=== PATIENT | female | born 1970 | race Caucasian/White ===

== ENCOUNTER 2024-03-06 17:17 | Inpatient (IN) | payer BC ==
[~2024-03-06] VITALS: Ht 162.6 cm; Wt 54.8 kg
[2024-03-06] VITALS (63 sets, daily range): BP systolic 95–153; BP diastolic 56–103; TEMP 98.9; O2SAT 79–100
[2024-03-06] MEDS: methylPREDNISolone 125MG 2ML VIAL IV ONE (18:20)
[2024-03-06] MEDS: IPRATROPIUM 0.5MG/ALBUTEROL 2.5MG INH SOL UD 3ML (DUONEB) NEB ONE (18:20)
[2024-03-06] MEDS ORDERED: ISOVUE-370 76% 100ML VIAL As Ordered ONE (18:22)
[2024-03-06 18:34] LABS: CK-MB VALUE MASS 6.8 NG/ML (<3.6); ETHYL ALCOHOL (ETHANOL) < 0.003 % (0.000-0.010)
[2024-03-06 18:35] LABS: SALICYLATE LEVEL < 3.0 MG/DL (<30)
[2024-03-06 18:36] LABS: ALBUMIN 3.3 G/DL (3.2-5.2); ALKALINE PHOSPHATASE 309 U/L (35-104); ALT/SGPT 110 U/L (7.0-40); AST/SGOT 185 U/L (<34); BILIRUBIN,DIRECT 0.7 MG/DL (<0.4); BILIRUBIN,TOTAL 1.9 MG/DL (0.3-1.2); BLOOD UREA NITROGEN 25 MG/DL (9-23); CALCIUM LEVEL 9.2 MG/DL (8.5-10.1); CARBON DIOXIDE LEVEL 16 MMOL/L (20-31); CHLORIDE LEVEL 103 MMOL/L (98-107); CPK CREATINE PHOSPHOKINASE 373 U/L (34-145); CREATININE FOR GFR 1.03 MG/DL (0.55-1.30); GLOMERULAR FILTRATION RATE 59.4 (>51); GLUCOSE, FASTING 163 MG/DL (60-100); MB/CK RELATIVE INDEX 1.82 (< OR =4); SODIUM LEVEL 134 MMOL/L (136-145); TOTAL PROTEIN 7.3 G/DL (5.7-8.2)
[2024-03-06 18:36] LABS: BASO % 0.3 % (0.0-1.0); EOS % 0.2 % (0.0-3.0); HEMATOCRIT 34.2 % (36.0-47.0); LYMPH % 34.3 % (24.0-44.0); MEAN CORPUSCULAR HEMOGLOBIN 29.7 pg (27.0-33.0); MEAN CORPUSCULAR HGB CONC 29.2 g/dl (32.0-36.5); MEAN CORPUSCULAR VOLUME 101.5 fl (80.0-96.0); MONO # 0.6 10^3/uL (0.0-0.8); MONO % 6.9 % (2.0-8.0); PLATELET COUNT, AUTOMATED 281 10^3/uL (150-450); RED BLOOD COUNT 3.37 10^6/uL (4.00-5.40); WHITE BLOOD COUNT 8.7 10^3/uL (4.0-10.0)
[2024-03-06 18:38] LABS: THYROID STIMULATING HORMONE 9.608 uIU/ML (0.55-4.78)
[2024-03-06 18:58] LABS: OSMOLALITY SERUM 292 MOSM/KG (275-295)
[2024-03-06] MEDS ORDERED: LIDOCAINE 1% MDV 20ML VIAL As Ordered ONE (19:17)
[2024-03-06] MEDS ORDERED: MIDAZOLAM INJ 2MG/2ML VIAL As Ordered ONE (19:17)
[2024-03-06] MEDS ORDERED: D5W/0.9% SODIUM CHLORIDE 1,000 ML IV SCH (19:25)
[2024-03-06] MEDS ORDERED: LEVALBUTEROL 1.25MG 0.5ML CONCENTRATE NEB NEB PRN (19:35)
[2024-03-06] MEDS ORDERED: PERCOCET 5MG/325MG TAB PO PRN ×2 (19:35)
[2024-03-06] MEDS ORDERED: BISACODYL 10MG SUPP PR PRN (19:35)
[2024-03-06] MEDS: LEVALBUTEROL 1.25MG 0.5ML CONCENTRATE NEB NEB SCH (20:07)
[2024-03-06 20:11] LABS: ABG BASE EXCESS -5.9 (-2.0-2.0); ABG HCO3 17.1 MMOL/L (22.0-26.0); ABG O2 SATURATION 98.2 % (95.0-99.0); ABG PARTIAL PRESSURE CO2 25.9 mmHg (35.0-45.0); ABG STANDARD HCO3 19.6 MMOL/L. (22.0-26.0); ABG TOTAL CO2 17.9 MMOL/L (22.0-29.0); ABG pH (ARTERIAL) 7.437 UNITS (7.350-7.450)
[2024-03-06] MEDS ORDERED: ceFAZolin SOD 2 GM in IV 1 EA IV ONE (20:30)
[2024-03-06] MEDS: ceFAZolin SOD 2 GM in IV 1 EA IV ONE (20:32)
[2024-03-06] MEDS: D5W/0.9% SODIUM CHLORIDE 1,000 ML IV SCH (20:32)
[2024-03-06] MEDS: MIDAZOLAM INJ 2MG/2ML VIAL IV ONE ×4 (20:38→20:50)
[2024-03-06] MEDS: LIDOCAINE 1% MDV 20ML VIAL SC ONE (20:44)
[2024-03-06] MEDS: DOCUSATE SODIUM 100MG CAPSULE PO SCH (21:00)
[2024-03-06 21:17] LABS: LDH LACTATE DEHYDROGENASE 553 U/L (120-246)
[2024-03-06 21:31] LABS: PH BODY FLUID 7.195 UNITS (NOT ESTABLISHED); SOURCE, BODY FLUID pH PLEURAL
[2024-03-06] MEDS: KETOROLAC 30 MG/ML 1ML VIAL IV SCH (21:38)
[2024-03-06 21:49] LABS: APPEARANCE, BODY FLUID TURBID (CLEAR); PLEURAL FL COLOR RED (COLORLESS); SOURCE, BODY FLUID PLEURAL
[2024-03-06 21:56] LABS: CK-MB VALUE MASS 6.4 NG/ML (<3.6)
[2024-03-06 22:02] LABS: MB/CK RELATIVE INDEX 1.83 (< OR =4)
[2024-03-06 22:21] LABS: SOURCE, BODY FLUID ALBUMIN PLEURAL
[2024-03-06 22:26] LABS: SOURCE, BODY FLUID GLUCOSE PLEURAL
[2024-03-06 22:28] LABS: AMYLASE, BODY FLUID 79 U/L (NOT ESTABLISHED); CHOLESTEROL, BODY FLUID 240 MG/DL (NOT ESTABLISHED); SOURCE, BODY FLUID AMYLASE PLEURAL; SOURCE, BODY FLUID CHOL PLEURAL
[2024-03-06] MEDS: LR 1,000 ML IV SCH (22:30)
[2024-03-06 22:37] LABS: LDH, BODY FLUID > 750 U/L (NOT ESTABLISHED); SOURCE, BODY FLUID LDH PLEURAL
[2024-03-06 22:40] LABS: SOURCE, BODY FLUID TRIG PLEURAL; TRIGLYCERIDE, BODY FLUID 92 MG/DL (NOT ESTABLISHED)
[2024-03-06 22:44] LABS: MAGNESIUM LEVEL 2.4 MG/DL (1.8-2.4)
[2024-03-06] MEDS: METOPROLOL 5 MG/5 ML VIAL IV SCH (22:49)
[2024-03-06 22:53] LABS: PROCALCITONIN 0.47 ng/ml
[2024-03-06] MEDS: SODIUM BICARBONATE 150 MEQ in D5W 1,000 ML IV SCH (23:00)
[2024-03-06 23:21] LABS: ABG BASE EXCESS -2.1 (-2.0-2.0); ABG HCO3 21.3 MMOL/L (22.0-26.0); ABG O2 SATURATION 98.5 % (95.0-99.0); ABG PARTIAL PRESSURE CO2 31.3 mmHg (35.0-45.0); ABG PARTIAL PRESSURE O2 119.9 mmHg (75.0-100.0); ABG STANDARD HCO3 22.8 MMOL/L. (22.0-26.0); ABG TOTAL CO2 22.3 MMOL/L (22.0-29.0); ABG pH (ARTERIAL) 7.451 UNITS (7.350-7.450)
[2024-03-07] VITALS (21 sets, daily range): BP systolic 94–137; BP diastolic 60–78; TEMP 98.1–99.5; O2SAT 92–98
[2024-03-07 00:02] LABS: SOURCE, BODY FLUID TOT PROTEIN PLEURAL; TOTAL PROTEIN, BODY FLUID 6.3 G/DL (NOT ESTABLISHED)
[2024-03-07 00:07] LABS: ALBUMIN 2.7 G/DL (3.2-5.2); ALKALINE PHOSPHATASE 252 U/L (35-104); ALT/SGPT 104 U/L (7.0-40); AST/SGOT 226 U/L (<34); BILIRUBIN,TOTAL 1.2 MG/DL (0.3-1.2); BLOOD UREA NITROGEN 23 MG/DL (9-23); CALCIUM LEVEL 8.4 MG/DL (8.5-10.1); CARBON DIOXIDE LEVEL 22 MMOL/L (20-31); CHLORIDE LEVEL 109 MMOL/L (98-107); CREATININE FOR GFR 0.85 MG/DL (0.55-1.30); GLOMERULAR FILTRATION RATE > 60.0 (>51); GLUCOSE, FASTING 157 MG/DL (60-100); POTASSIUM SERUM 4.5 MMOL/L (3.5-5.1); SODIUM LEVEL 141 MMOL/L (136-145)
[2024-03-07 05:13] LABS: ABG BASE EXCESS 0.8 (-2.0-2.0); ABG HCO3 23.9 MMOL/L (22.0-26.0); ABG O2 SATURATION 95.4 % (95.0-99.0); ABG PARTIAL PRESSURE CO2 32.3 mmHg (35.0-45.0); ABG PARTIAL PRESSURE O2 77.5 mmHg (75.0-100.0); ABG STANDARD HCO3 25.2 MMOL/L. (22.0-26.0); ABG TOTAL CO2 24.9 MMOL/L (22.0-29.0); ABG pH (ARTERIAL) 7.487 UNITS (7.350-7.450)
[2024-03-07 05:22] LABS: EOS # 0.1 10^3/uL (0.0-0.5); EOS % 0.9 % (0.0-3.0); HEMATOCRIT 27.2 % (36.0-47.0); HEMOGLOBIN 8.3 g/dl (12.0-15.5); LYMPH # 0.8 10^3/uL (1.5-5.0); MEAN CORPUSCULAR HEMOGLOBIN 29.2 pg (27.0-33.0); MEAN CORPUSCULAR HGB CONC 30.5 g/dl (32.0-36.5); MEAN CORPUSCULAR VOLUME 95.8 fl (80.0-96.0); MONO # 0.3 10^3/uL (0.0-0.8); MONO % 5.9 % (2.0-8.0); NEUTROPHILS # 4.5 10^3/uL (1.5-8.5); NEUTROPHILS % 77.8 % (36.0-66.0); PLATELET COUNT, AUTOMATED 223 10^3/uL (150-450); RED BLOOD COUNT 2.84 10^6/uL (4.00-5.40); WHITE BLOOD COUNT 5.7 10^3/uL (4.0-10.0)
[2024-03-07 05:47] LABS: BLOOD UREA NITROGEN 22 MG/DL (9-23); CALCIUM LEVEL 8.2 MG/DL (8.5-10.1); CARBON DIOXIDE LEVEL 26 MMOL/L (20-31); CHLORIDE LEVEL 108 MMOL/L (98-107); CREATININE FOR GFR 0.81 MG/DL (0.55-1.30); GLOMERULAR FILTRATION RATE > 60.0 (>51); GLUCOSE, FASTING 169 MG/DL (60-100); POTASSIUM SERUM 4.6 MMOL/L (3.5-5.1); SODIUM LEVEL 142 MMOL/L (136-145)
[2024-03-07 07:22] LABS: ALBUMIN 2.6 G/DL (3.2-5.2); ALKALINE PHOSPHATASE 248 U/L (35-104); ALT/SGPT 111 U/L (7.0-40); AST/SGOT 384 U/L (<34); TOTAL PROTEIN 5.9 G/DL (5.7-8.2)
[2024-03-07] MEDS: HEPARIN SOD (PORCINE) 5000UNITS/ML 1ML VIAL/SYRINGE SC SCH (08:38)
[2024-03-07] MEDS: MOM 30ML SUSPENSION UDC PO SCH (08:39)
[2024-03-07] MEDS: PANTOPRAZOLE 40MG TAB (PROTONIX) PO SCH (08:39)
[2024-03-07] MEDS ORDERED: VITA100018 PO (09:26)
[2024-03-07] MEDS ORDERED: D-10TAB2 PO (09:26)
[2024-03-07] MEDS ORDERED: C 50TAB PO (09:26)
[2024-03-07] MEDS ORDERED: HOME MED LIST COMPLETE! XX SCH (09:30)
[2024-03-07 11:53] LABS: IRON (FE) 40 UG/DL (50-170); PERCENT SATURATION 16.1 % (13.2-45.0); TOTAL IRON BINDING CAPACITY 248 UG/DL (250-425)
[2024-03-07 11:54] LABS: FERRITIN 311.6 NG/ML (7.3-270.7)
[2024-03-07 11:55] LABS: FOLATE 15.05 NG/ML (>5.4)
[2024-03-07 11:56] LABS: VITAMIN B12 LEVEL > 2000 PG/ML (211-911)
[2024-03-07 18:47] LABS: ALBUMIN 2.6 G/DL (3.2-5.2); ALKALINE PHOSPHATASE 287 U/L (35-104); ALT/SGPT 112 U/L (7.0-40); AST/SGOT 492 U/L (<34); BILIRUBIN,TOTAL 0.8 MG/DL (0.3-1.2); BLOOD UREA NITROGEN 37 MG/DL (9-23); CARBON DIOXIDE LEVEL 28 MMOL/L (20-31); CHLORIDE LEVEL 99 MMOL/L (98-107); CREATININE FOR GFR 0.92 MG/DL (0.55-1.30); GLOMERULAR FILTRATION RATE > 60.0 (>51); GLUCOSE, FASTING 266 MG/DL (60-100); POTASSIUM SERUM 4.3 MMOL/L (3.5-5.1); SODIUM LEVEL 138 MMOL/L (136-145); TOTAL PROTEIN 5.9 G/DL (5.7-8.2)
[2024-03-07] MEDS: ONDANSETRON 4MG 2ML VIAL IV PRN (20:15)
[2024-03-08] VITALS (12 sets, daily range): BP systolic 85–104; BP diastolic 53–73; TEMP 98.7–99.4; O2SAT 89–99
[2024-03-08] MEDS: ACETAMINOPHEN 325 MG TAB PO PRN (00:18)
[2024-03-08 06:01] LABS: BASO % 0.2 % (0.0-1.0); EOS % 0.2 % (0.0-3.0); HEMATOCRIT 27.2 % (36.0-47.0); HEMOGLOBIN 8.3 g/dl (12.0-15.5); LYMPH # 1.3 10^3/uL (1.5-5.0); LYMPH % 15.5 % (24.0-44.0); MEAN CORPUSCULAR HEMOGLOBIN 29.9 pg (27.0-33.0); MEAN CORPUSCULAR HGB CONC 30.5 g/dl (32.0-36.5); MEAN CORPUSCULAR VOLUME 97.8 fl (80.0-96.0); MONO # 0.7 10^3/uL (0.0-0.8); MONO % 7.9 % (2.0-8.0); NEUTROPHILS # 6.2 10^3/uL (1.5-8.5); NEUTROPHILS % 75.1 % (36.0-66.0); PLATELET COUNT, AUTOMATED 230 10^3/uL (150-450); RED BLOOD COUNT 2.78 10^6/uL (4.00-5.40); WHITE BLOOD COUNT 8.3 10^3/uL (4.0-10.0)
[2024-03-08 06:51] LABS: ALBUMIN 2.6 G/DL (3.2-5.2); ALKALINE PHOSPHATASE 345 U/L (35-104); ALT/SGPT 138 U/L (7.0-40); AST/SGOT 472 U/L (<34); BILIRUBIN,TOTAL 0.9 MG/DL (0.3-1.2); BLOOD UREA NITROGEN 36 MG/DL (9-23); CARBON DIOXIDE LEVEL 27 MMOL/L (20-31); CHLORIDE LEVEL 99 MMOL/L (98-107); CREATININE FOR GFR 0.91 MG/DL (0.55-1.30); GLOMERULAR FILTRATION RATE > 60.0 (>51); GLUCOSE, FASTING 128 MG/DL (60-100); POTASSIUM SERUM 4.5 MMOL/L (3.5-5.1); SODIUM LEVEL 136 MMOL/L (136-145); TOTAL PROTEIN 5.9 G/DL (5.7-8.2)
[2024-03-08 07:01] LABS: CPK CREATINE PHOSPHOKINASE 619 U/L (34-145)
[2024-03-08] MEDS: ALPRAZolam 0.25 MG TAB PO SCH (09:41)
[2024-03-08] MEDS ORDERED: dilTIAZem 25MG/5ML VIAL As Ordered ONE (10:01)
[2024-03-08] MEDS: dilTIAZem 25MG/5ML VIAL IV STA (10:08)
[2024-03-08] MEDS: MIDAZOLAM INJ 2MG/2ML VIAL IV STA (10:09)
[2024-03-08] MEDS: FUROSEMIDE 40MG/4ML VIAL IV ONE ×2 (11:19→18:01)
[2024-03-08] MEDS: GASTROGRAFIN SOLUTION 30ML PO SCH (11:41)
[2024-03-08] MEDS: DIGOXIN INJ 0.5 MG/2 ML AMP IV ONE (14:59)
[2024-03-08] MEDS ORDERED: ALPRAZolam 0.25 MG TAB PO PRN (15:10)
[2024-03-08 16:24] LABS: HEPATITIS B SURFACE ANTIGEN NEGATIVE (NEGATIVE)
[2024-03-08 16:45] LABS: HEPATITIS B CORE ANTIBODY IGM NEGATIVE (NEGATIVE); HEPATITIS C VIRUS ABY INDEX 0.11 INDEX (<0.8)
[2024-03-08] MEDS: DIGOXIN 0.25 MG TAB PO SCH (20:05)
[2024-03-08] MEDS: RAMELTEON 8 MG TAB (ROZEREM) PO SCH (20:05)
[2024-03-09] VITALS (7 sets, daily range): BP systolic 90–98; BP diastolic 56–68; TEMP 98.2–99.2; O2SAT 93–99
[2024-03-09 05:01] LABS: BASO % 0.2 % (0.0-1.0); EOS # 0.1 10^3/uL (0.0-0.5); EOS % 1.3 % (0.0-3.0); HEMATOCRIT 26.5 % (36.0-47.0); HEMOGLOBIN 8.1 g/dl (12.0-15.5); LYMPH # 1.3 10^3/uL (1.5-5.0); LYMPH % 20.5 % (24.0-44.0); MEAN CORPUSCULAR HGB CONC 30.6 g/dl (32.0-36.5); MEAN CORPUSCULAR VOLUME 98.1 fl (80.0-96.0); MONO # 0.6 10^3/uL (0.0-0.8); MONO % 8.8 % (2.0-8.0); NEUTROPHILS # 4.3 10^3/uL (1.5-8.5); NEUTROPHILS % 67.8 % (36.0-66.0); PLATELET COUNT, AUTOMATED 206 10^3/uL (150-450); WHITE BLOOD COUNT 6.4 10^3/uL (4.0-10.0)
[2024-03-09 05:27] LABS: ALBUMIN 2.3 G/DL (3.2-5.2); ALKALINE PHOSPHATASE 419 U/L (35-104); ALT/SGPT 142 U/L (7.0-40); AST/SGOT 272 U/L (<34); BILIRUBIN,TOTAL 0.9 MG/DL (0.3-1.2); BLOOD UREA NITROGEN 32 MG/DL (9-23); CALCIUM LEVEL 7.4 MG/DL (8.5-10.1); CARBON DIOXIDE LEVEL 30 MMOL/L (20-31); CHLORIDE LEVEL 97 MMOL/L (98-107); CREATININE FOR GFR 0.99 MG/DL (0.55-1.30); FREE T4 1.36 NG/DL (0.89-1.76); GLOMERULAR FILTRATION RATE > 60.0 (>51); GLUCOSE, FASTING 103 MG/DL (60-100); POTASSIUM SERUM 4.4 MMOL/L (3.5-5.1); SODIUM LEVEL 135 MMOL/L (136-145); THYROID STIMULATING HORMONE 3.936 uIU/ML (0.55-4.78); TOTAL PROTEIN 5.4 G/DL (5.7-8.2)
[2024-03-09] MEDS ORDERED: LEVOTHYROXINE 25MCG TABLET (0.025MG) PO SCH (06:00)
[2024-03-09] MEDS: FUROSEMIDE 40MG/4ML VIAL IV SCH (12:28)
[2024-03-09 13:33] LABS: LDH LACTATE DEHYDROGENASE 722 U/L (120-246)
[2024-03-10] VITALS (8 sets, daily range): BP systolic 83–103; BP diastolic 52–57; TEMP 97.9–99.2; O2SAT 88–96
[2024-03-10 05:00] LABS: BASO % 0.4 % (0.0-1.0); EOS # 0.1 10^3/uL (0.0-0.5); EOS % 1.9 % (0.0-3.0); HEMOGLOBIN 8.1 g/dl (12.0-15.5); LYMPH # 1.2 10^3/uL (1.5-5.0); LYMPH % 22.8 % (24.0-44.0); MEAN CORPUSCULAR HEMOGLOBIN 29.3 pg (27.0-33.0); MEAN CORPUSCULAR VOLUME 97.8 fl (80.0-96.0); MONO # 0.5 10^3/uL (0.0-0.8); MONO % 8.5 % (2.0-8.0); NEUTROPHILS # 3.4 10^3/uL (1.5-8.5); NEUTROPHILS % 65.1 % (36.0-66.0); PLATELET COUNT, AUTOMATED 192 10^3/uL (150-450); RED BLOOD COUNT 2.76 10^6/uL (4.00-5.40); WHITE BLOOD COUNT 5.3 10^3/uL (4.0-10.0)
[2024-03-10 05:29] LABS: ALKALINE PHOSPHATASE 400 U/L (35-104); ALT/SGPT 108 U/L (7.0-40); AST/SGOT 123 U/L (<34); BILIRUBIN,TOTAL 0.8 MG/DL (0.3-1.2); BLOOD UREA NITROGEN 30 MG/DL (9-23); CALCIUM LEVEL 7.4 MG/DL (8.5-10.1); CARBON DIOXIDE LEVEL 30 MMOL/L (20-31); CHLORIDE LEVEL 98 MMOL/L (98-107); CREATININE FOR GFR 0.86 MG/DL (0.55-1.30); GLOMERULAR FILTRATION RATE > 60.0 (>51); GLUCOSE, FASTING 90 MG/DL (60-100); POTASSIUM SERUM 4.6 MMOL/L (3.5-5.1); SODIUM LEVEL 136 MMOL/L (136-145); TOTAL PROTEIN 4.9 G/DL (5.7-8.2)
[2024-03-10] MEDS: DIGOXIN 0.125 MG TAB PO SCH (08:32)
[2024-03-10 09:16] LABS: INR 0.98; PARTIAL THROMBOPLASTIN TIME 26.6 SECONDS (24.8-34.2); PROTHROMBIN TIME 13.3 SECONDS (12.5-14.5)
[2024-03-10 13:56] LABS: PH BODY FLUID 7.612 UNITS (NOT ESTABLISHED); SOURCE, BODY FLUID pH PLEURAL
[2024-03-10 13:58] LABS: APPEARANCE, BODY FLUID CLEAR (CLEAR); PLEURAL FL COLOR YELLOW (COLORLESS); SOURCE, BODY FLUID PLEURAL
[2024-03-10 14:43] LABS: SOURCE, BODY FLUID ALBUMIN PLEURAL
[2024-03-10 14:48] LABS: SOURCE, BODY FLUID GLUCOSE PLEURAL; SOURCE, BODY FLUID TRIG PLEURAL; TRIGLYCERIDE, BODY FLUID 22 MG/DL (NOT ESTABLISHED)
[2024-03-10 14:49] LABS: LDH, BODY FLUID 156 U/L (NOT ESTABLISHED); SOURCE, BODY FLUID LDH PLEURAL; SOURCE, BODY FLUID TOT PROTEIN PLEURAL; TOTAL PROTEIN, BODY FLUID 2.3 G/DL (NOT ESTABLISHED)
[2024-03-10 14:50] LABS: AMYLASE, BODY FLUID 48 U/L (NOT ESTABLISHED); CHOLESTEROL, BODY FLUID 33 MG/DL (NOT ESTABLISHED); SOURCE, BODY FLUID AMYLASE PLEURAL; SOURCE, BODY FLUID CHOL PLEURAL
[2024-03-11] VITALS (10 sets, daily range): BP systolic 83–99; BP diastolic 51–60; TEMP 97.9–98.7; O2SAT 91–97
[2024-03-11] MEDS: SODIUM CHLORIDE NASAL 0.65% SPRAY BTL (OCEAN) SCH (00:05)
[2024-03-11 07:03] LABS: BASO % 0.5 % (0.0-1.0); EOS # 0.1 10^3/uL (0.0-0.5); EOS % 1.8 % (0.0-3.0); HEMATOCRIT 29.6 % (36.0-47.0); HEMOGLOBIN 8.9 g/dl (12.0-15.5); LYMPH # 1.5 10^3/uL (1.5-5.0); LYMPH % 27.7 % (24.0-44.0); MEAN CORPUSCULAR HEMOGLOBIN 29.2 pg (27.0-33.0); MEAN CORPUSCULAR HGB CONC 30.1 g/dl (32.0-36.5); MONO # 0.5 10^3/uL (0.0-0.8); MONO % 9.6 % (2.0-8.0); NEUTROPHILS # 3.2 10^3/uL (1.5-8.5); NEUTROPHILS % 58.6 % (36.0-66.0); PLATELET COUNT, AUTOMATED 217 10^3/uL (150-450); RED BLOOD COUNT 3.05 10^6/uL (4.00-5.40); WHITE BLOOD COUNT 5.5 10^3/uL (4.0-10.0)
[2024-03-11 07:29] LABS: BLOOD UREA NITROGEN 29 MG/DL (9-23); CALCIUM LEVEL 7.7 MG/DL (8.5-10.1); CARBON DIOXIDE LEVEL 30 MMOL/L (20-31); CHLORIDE LEVEL 101 MMOL/L (98-107); CREATININE FOR GFR 0.86 MG/DL (0.55-1.30); GLOMERULAR FILTRATION RATE > 60.0 (>51); GLUCOSE, FASTING 87 MG/DL (60-100); MAGNESIUM LEVEL 2.4 MG/DL (1.8-2.4); POTASSIUM SERUM 4.3 MMOL/L (3.5-5.1); SODIUM LEVEL 137 MMOL/L (136-145)
[2024-03-11] MEDS: FUROSEMIDE 40MG/4ML VIAL IV ONE (13:35)
[2024-03-12] VITALS (15 sets, daily range): BP systolic 91–115; BP diastolic 55–72; TEMP 97.6–100.2; O2SAT 94–100
[2024-03-12 05:31] LABS: BASO % 0.7 % (0.0-1.0); EOS # 0.1 10^3/uL (0.0-0.5); EOS % 2.1 % (0.0-3.0); HEMATOCRIT 28.1 % (36.0-47.0); HEMOGLOBIN 8.4 g/dl (12.0-15.5); LYMPH # 1.7 10^3/uL (1.5-5.0); MEAN CORPUSCULAR HEMOGLOBIN 29.6 pg (27.0-33.0); MEAN CORPUSCULAR HGB CONC 29.9 g/dl (32.0-36.5); MEAN CORPUSCULAR VOLUME 98.9 fl (80.0-96.0); MONO # 0.6 10^3/uL (0.0-0.8); MONO % 10.6 % (2.0-8.0); NEUTROPHILS % 53.9 % (36.0-66.0); PLATELET COUNT, AUTOMATED 227 10^3/uL (150-450); RED BLOOD COUNT 2.84 10^6/uL (4.00-5.40); WHITE BLOOD COUNT 5.6 10^3/uL (4.0-10.0)
[2024-03-12] MEDS: FUROSEMIDE 40MG/4ML VIAL IV ONE (06:02)
[2024-03-12 06:07] LABS: ALBUMIN 3.2 G/DL (3.2-5.2); ALKALINE PHOSPHATASE 330 U/L (35-104); ALT/SGPT 58 U/L (7.0-40); AST/SGOT 55 U/L (<34); BILIRUBIN,TOTAL 0.8 MG/DL (0.3-1.2); BLOOD UREA NITROGEN 23 MG/DL (9-23); CARBON DIOXIDE LEVEL 31 MMOL/L (20-31); CHLORIDE LEVEL 101 MMOL/L (98-107); CREATININE FOR GFR 0.83 MG/DL (0.55-1.30); GLOMERULAR FILTRATION RATE > 60.0 (>51); GLUCOSE, FASTING 87 MG/DL (60-100); POTASSIUM SERUM 4.1 MMOL/L (3.5-5.1); SODIUM LEVEL 141 MMOL/L (136-145); TOTAL PROTEIN 5.6 G/DL (5.7-8.2)
[2024-03-12] MEDS: COLCHICINE 0.6 MG TABLET PO SCH (09:47)
[2024-03-12] MEDS: FLUTICASONE PROP 0.05% NASAL SPRAY 16 GM (FLONASE) NARES SCH (16:37)
[2024-03-13] VITALS (8 sets, daily range): BP systolic 99–108; BP diastolic 59–69; TEMP 98.5–99.7; O2SAT 95–100
[2024-03-13 06:08] LABS: ALBUMIN 3.6 G/DL (3.2-5.2); ALKALINE PHOSPHATASE 296 U/L (35-104); ALT/SGPT 56 U/L (7.0-40); AST/SGOT 64 U/L (<34); BILIRUBIN,TOTAL 0.8 MG/DL (0.3-1.2); BLOOD UREA NITROGEN 26 MG/DL (9-23); CALCIUM LEVEL 9.3 MG/DL (8.5-10.1); CARBON DIOXIDE LEVEL 29 MMOL/L (20-31); CHLORIDE LEVEL 105 MMOL/L (98-107); CREATININE FOR GFR 0.75 MG/DL (0.55-1.30); GLOMERULAR FILTRATION RATE > 60.0 (>51); GLUCOSE, FASTING 125 MG/DL (60-100); POTASSIUM SERUM 4.1 MMOL/L (3.5-5.1); SODIUM LEVEL 145 MMOL/L (136-145)
[2024-03-14 00:08] VITALS: BP 98/58; TEMP 98.7; O2SAT 95
[2024-03-14 04:25] VITALS: BP 102/67; TEMP 99.1; O2SAT 94
[2024-03-14 06:28] LABS: ALBUMIN 3.4 G/DL (3.2-5.2); ALKALINE PHOSPHATASE 285 U/L (35-104); ALT/SGPT 54 U/L (7.0-40); AST/SGOT 55 U/L (<34); BILIRUBIN,TOTAL 0.6 MG/DL (0.3-1.2); BLOOD UREA NITROGEN 26 MG/DL (9-23); CARBON DIOXIDE LEVEL 28 MMOL/L (20-31); CHLORIDE LEVEL 105 MMOL/L (98-107); CREATININE FOR GFR 0.73 MG/DL (0.55-1.30); GLOMERULAR FILTRATION RATE > 60.0 (>51); GLUCOSE, FASTING 97 MG/DL (60-100); POTASSIUM SERUM 4.4 MMOL/L (3.5-5.1); SODIUM LEVEL 144 MMOL/L (136-145); TOTAL PROTEIN 5.7 G/DL (5.7-8.2)
[2024-03-14 09:42] VITALS: BP 117/71; TEMP 99.1; O2SAT 98
[2024-03-14 12:20] VITALS: BP 104/58; TEMP 99; O2SAT 96
[2024-03-14] MEDS ORDERED: COLC0.6T47 PO (12:40)
[2024-03-14] MEDS ORDERED: DIGO0.123 PO (12:40)
[2024-03-14] MEDS ORDERED: LASI40TA9 PO (12:44)
[2024-03-17] MEDS ORDERED: MAGN400C PO (08:00)
== END 2024-03-14 16:15 | disposition home or self-care (01) | DRG 382 ==
LOC: EDBD 17:17 → M ED 19:20 → M ED INP 19:22 → M ICU 19:54 → M PCU 03-13 18:17
PROVIDERS: ADMIT Internal Medicine Pulmonary Disease; ATTEND Student in an Organized Health Care Education/Training Program
PROC: 0W9D30Z Drainage of Pericardial Cavity with Drainage Device, Percutaneous Approach (ICD-10-PCS; principal; 2024-03-06)
PROC: 0W9B3ZZ Drainage of Left Pleural Cavity, Percutaneous Approach (ICD-10-PCS; 2024-03-09)
PROC: 0FB23ZX Excision of Left Lobe Liver, Percutaneous Approach, Diagnostic (ICD-10-PCS; 2024-03-10)
PROC: 0W993ZZ Drainage of Right Pleural Cavity, Percutaneous Approach (ICD-10-PCS; 2024-03-10 13:30)
DX: C50.919 Malignant neoplasm of unspecified site of unspecified female breast (principal); K72.00 Acute and subacute hepatic failure without coma; J96.01 Acute respiratory failure with hypoxia; I31.4 Cardiac tamponade; J91.0 Malignant pleural effusion; C78.7 Secondary malignant neoplasm of liver and intrahepatic bile duct; E88.09 Other disorders of plasma-protein metabolism, not elsewhere classified; C79.51 Secondary malignant neoplasm of bone; I31.31 Malignant pericardial effusion in diseases classified elsewhere; E87.20 Acidosis, unspecified; C79.89 Secondary malignant neoplasm of other specified sites; E87.1 Hypo-osmolality and hyponatremia; I48.0 Paroxysmal atrial fibrillation; K76.1 Chronic passive congestion of liver; J98.11 Atelectasis; E03.9 Hypothyroidism, unspecified; D63.0 Anemia in neoplastic disease; F41.9 Anxiety disorder, unspecified; I73.9 Peripheral vascular disease, unspecified; R74.01 Elevation of levels of liver transaminase levels

== ENCOUNTER → 2024-04-25 | Outpatient (CLI) | payer BC ==
[~2024-04-25] MED LIST: C 50TAB PO; COLC0.6T47 PO; D-10TAB2 PO; DIGO0.123 PO; LASI40TA9 PO; LETR2.5T2 PO; MAGN400C PO; RIBO1TAB2 PO; VITA100018 PO
== END ==
LOC: M CARPUL 14:53
PROVIDERS: ATTEND Student in an Organized Health Care Education/Training Program
DX: I31.39 Other pericardial effusion (noninflammatory) (principal)

== ENCOUNTER 2024-06-02 08:21 | Inpatient (IN) | payer BC ==
[~2024-06-02] VITALS: Ht 162.6 cm; Wt 45.5 kg
[2024-06-02] MEDS ORDERED: NS 500 ML IV ONE (09:00)
[2024-06-02 09:07] LABS: BASO # 0.1 10^3/uL (0.0-0.2); BASO % 0.8 % (0.0-1.0); EOS # 0.1 10^3/uL (0.0-0.5); EOS % 0.6 % (0.0-3.0); HEMATOCRIT 32.2 % (36.0-47.0); HEMOGLOBIN 10.3 g/dl (12.0-15.5); LYMPH # 2.3 10^3/uL (1.5-5.0); LYMPH % 21.4 % (24.0-44.0); MEAN CORPUSCULAR HEMOGLOBIN 29.9 pg (27.0-33.0); MEAN CORPUSCULAR VOLUME 93.3 fl (80.0-96.0); MONO % 9.1 % (2.0-8.0); NEUTROPHILS # 6.5 10^3/uL (1.5-8.5); NEUTROPHILS % 60.2 % (36.0-66.0); RED BLOOD COUNT 3.45 10^6/uL (4.00-5.40); WHITE BLOOD COUNT 10.8 10^3/uL (4.0-10.0)
[2024-06-02 09:11] LABS: PLATELET COUNT, AUTOMATED 77 10^3/uL (150-450)
[2024-06-02] MEDS: ONDANSETRON 4MG 2ML VIAL IV ONE (09:14)
[2024-06-02 09:18] LABS: INR 1.18; PARTIAL THROMBOPLASTIN TIME 31.9 SECONDS (24.8-34.2); PROTHROMBIN TIME 15.3 SECONDS (12.5-14.5)
[2024-06-02] MEDS: DEXTROSE 50% 50ML SYRINGE IV STA (09:27)
[2024-06-02] MEDS: NS 500 ML IV ONE (09:28)
[2024-06-02 09:51] LABS: ALBUMIN 2.6 G/DL (3.2-5.2); BILIRUBIN,DIRECT 11.6 MG/DL (<0.4); BILIRUBIN,TOTAL 16.7 MG/DL (0.3-1.2); FREE T4 1.36 NG/DL (0.89-1.76); THYROID STIMULATING HORMONE 1.785 uIU/ML (0.55-4.78); TOTAL PROTEIN 5.9 G/DL (5.7-8.2)
[2024-06-02] MEDS: MORPHINE 2 MG/ML 1ML VIAL IV ONE (09:55)
[2024-06-02] MEDS ORDERED: ISOVUE-370 76% 100ML VIAL As Ordered ONE (10:06)
[2024-06-02 12:06] LABS: CREATININE,RANDOM URINE 39.1 MG/DL
[2024-06-02 12:07] LABS: SODIUM,RANDOM URINE < 10 MMOL/L
[2024-06-02] MEDS: D5W/0.45% SODIUM CHLORIDE 1,000 ML IV SCH (12:35)
[2024-06-02] MEDS ORDERED: HOME MED LIST COMPLETE! XX SCH (13:20)
[2024-06-02] MEDS ORDERED: MAALOX 30 ML SUSP *UDC PO PRN (14:10)
[2024-06-02] MEDS ORDERED: LOPERAMIDE 2 MG CAPLET PO PRN (14:20)
[2024-06-02] MEDS: MORPHINE 2 MG/ML 1ML VIAL IV PRN (15:36)
[2024-06-02] MEDS: ONDANSETRON 4MG ORAL DISINTEGRATING TAB PO PRN (15:36)
[2024-06-02 17:35] VITALS: BP 126/83; TEMP 101; O2SAT 96
[2024-06-02 19:28] VITALS: TEMP 99.4
[2024-06-02 19:44] VITALS: BP 121/83; TEMP 99.3; O2SAT 96
[2024-06-02] MEDS: PIPERACILLIN/TAZOBACTAM SOD 4.5 GM in DEXTROSE 5% (D5W) ADV/MINI-BAG 50 ML IV SCH (20:46)
[2024-06-02] MEDS: DOCUSATE SODIUM 100MG CAPSULE PO SCH (20:46)
[2024-06-03 00:06] VITALS: BP 123/80; TEMP 98.7; O2SAT 96
[2024-06-03] MEDS: ONDANSETRON 4MG 2ML VIAL IV PRN ×2 (00:39→10:52)
[2024-06-03 02:11] LABS: KETONE, URINE AUTO RFX NEGATIVE (NEGATIVE); LEUKOCYTE ESTERASE UR AUTO RFX NEGATIVE (NEGATIVE); MUCUS, URINE RFX SMALL (NEGATIVE); NITRITE, URINE AUTO RFX NEGATIVE (NEGATIVE); RBC, URINE AUTO RFX 2 /HPF (0-3); SQUAM EPITHELIAL CELL UR AURFX 2 /HPF (0-6); WBC, URINE AUTO RFX 0 /HPF (0-3)
[2024-06-03 04:25] VITALS: BP 121/73; TEMP 97.1; O2SAT 95
[2024-06-03 05:58] LABS: HEMATOCRIT 32.2 % (36.0-47.0); HEMOGLOBIN 10.2 g/dl (12.0-15.5); MEAN CORPUSCULAR HEMOGLOBIN 29.3 pg (27.0-33.0); MEAN CORPUSCULAR HGB CONC 31.7 g/dl (32.0-36.5); MEAN CORPUSCULAR VOLUME 92.5 fl (80.0-96.0); RED BLOOD COUNT 3.48 10^6/uL (4.00-5.40); WHITE BLOOD COUNT 11.2 10^3/uL (4.0-10.0)
[2024-06-03 06:00] LABS: PLATELET COUNT, AUTOMATED 69 10^3/uL (150-450)
[2024-06-03 06:45] LABS: ALBUMIN 2.5 G/DL (3.2-5.2); BILIRUBIN,TOTAL 20.2 MG/DL (0.3-1.2); CALCIUM LEVEL 10.5 MG/DL (8.5-10.1); CREATININE FOR GFR 1.14 MG/DL (0.55-1.30); GLOMERULAR FILTRATION RATE 57.2 (>51); POTASSIUM SERUM 6.1 MMOL/L (3.5-5.1); TOTAL PROTEIN 5.8 G/DL (5.7-8.2)
[2024-06-03] MEDS: DEXTROSE 50% 50ML SYRINGE IV STA (06:53)
[2024-06-03] MEDS: HumuLIN R (REGULAR) INSULIN (NovoLIN R) **100U/ML** PER UNIT IV STA (06:53)
[2024-06-03] MEDS: SOD POLYSTYRENE SULFONATE SUSP 15GM 60ML UD PO SCH (07:00)
[2024-06-03 08:00] VITALS: BP 124/72; TEMP 100; O2SAT 96
[2024-06-03] MEDS: CALCIUM GLUCONATE 1,000 MG in DEXTROSE 5% (D5W) MINI-BAG PLU 100 ML IV ONE (10:04)
[2024-06-03] MEDS ORDERED: VANCOMYCIN HCL 1,000 MG, VIAL MATE ADAPTER 1 EACH in NS 250 ML IV SCH (11:10)
[2024-06-03] MEDS: LACTULOSE 20GM/30ML SYRUP UDC PO SCH (11:43)
[2024-06-03] MEDS: MORPHINE 2 MG/ML 1ML VIAL IV ONE (14:46)
[2024-06-03] MEDS ORDERED: LORazepam 1 MG TAB PO PRN (15:50)
[2024-06-03] MEDS ORDERED: ACETAMINOPHEN 650MG SUPP PR PRN (15:50)
[2024-06-03] MEDS ORDERED: MORPHINE 2 MG/ML 1ML VIAL IV PRN (15:50)
[2024-06-03] MEDS ORDERED: HYOSCYAMINE SULFATE 0.125 MG SUBL TABLET PO PRN (15:50)
[2024-06-03] MEDS ORDERED: MORPHINE 10MG/0.5ML ORAL CONCENTRATE SOLUTION U/D SL PRN (15:50)
[2024-06-03] MEDS ORDERED: SALIVA SUBSTITUTE(MOUTHKOTE) BTL MT PRN (16:15)
[2024-06-03] MEDS: LORazepam 2 MG/ML 1ML VIAL IV PRN (16:21)
== END 2024-06-03 18:35 | disposition expired | DRG 720 ==
LOC: EDBD 08:21 → M ED 08:21 → M ED INP 14:08 → M PCU 17:25
PROVIDERS: ADMIT Student in an Organized Health Care Education/Training Program; ATTEND Student in an Organized Health Care Education/Training Program
DX: A41.02 Sepsis due to Methicillin resistant Staphylococcus aureus (principal); K72.00 Acute and subacute hepatic failure without coma; J91.0 Malignant pleural effusion; I31.31 Malignant pericardial effusion in diseases classified elsewhere; K83.1 Obstruction of bile duct; E46 Unspecified protein-calorie malnutrition; R64 Cachexia; C78.7 Secondary malignant neoplasm of liver and intrahepatic bile duct; C78.89 Secondary malignant neoplasm of other digestive organs; D68.9 Coagulation defect, unspecified; C79.51 Secondary malignant neoplasm of bone; C79.89 Secondary malignant neoplasm of other specified sites; D69.6 Thrombocytopenia, unspecified; R18.8 Other ascites; C50.919 Malignant neoplasm of unspecified site of unspecified female breast; E16.2 Hypoglycemia, unspecified; Z66 Do not resuscitate; E80.6 Other disorders of bilirubin metabolism; R74.01 Elevation of levels of liver transaminase levels; R19.7 Diarrhea, unspecified; Z68.1 Body mass index [BMI] 19.9 or less, adult; Z79.899 Other long term (current) drug therapy